=== PATIENT | male | born 1975 | race African-American/Black ===

== ENCOUNTER 2016-09-02 11:55 | Day surgery (SDC) | payer OTHER ==
[~2016-09-02 11:55] MED LIST: ACETAMINOPHEN 1,000 MG/100 ML 0 ML IV ONE; CELECOXIB 100 MG CAPSULE PO ONE; ceFAZolin 2 GM/50 ML 0 ML IV ONE
[2016-09-02] MEDS ORDERED: ACETAMINOPHEN 1,000 MG/100 ML 100 ML IV ONE (12:59)
[2016-09-02] MEDS ORDERED: ceFAZolin 2 GM/50 ML 50 ML IV ONE (13:00)
[2016-09-02] MEDS ORDERED: CELECOXIB 100 MG CAPSULE PO ONE (13:00)
[2016-09-02] MEDS ORDERED: LACTATED RINGERS 1,000 ML IV ONE ×2 (13:13→15:52)
[2016-09-02] MEDS ORDERED: PROPOFOL 200 MG/20 ML VIAL IVP ONE (13:42)
[2016-09-02] MEDS ORDERED: ACETAMINOPHEN 1,000 MG/100 ML VIAL IV ONE (13:42)
[2016-09-02] MEDS ORDERED: ONDANSETRON 4 MG/2 ML VIAL IVP ONE (13:42)
[2016-09-02] MEDS ORDERED: fentaNYL 100 MCG/2 ML VIAL IVP ONE (13:42)
[2016-09-02] MEDS ORDERED: ceFAZolin 2 GM/50 ML BAG IV ONE (13:42)
[2016-09-02] MEDS ORDERED: MIDAZOLAM 2 MG/2 ML VIAL IVP ONE (13:42)
[2016-09-02] MEDS ORDERED: MORPHINE PF 5 MG/10 ML AMP EP ONE (13:42)
[2016-09-02] MEDS ORDERED: ROPIVACAINE 0.2% PF 10 ML VIAL EPI ONE (14:15)
[2016-09-02] MEDS ORDERED: BUPIVACAINE 0.25%-EPI 1:200000 PF 30 ML VIAL SUBQ ONE (14:15)
[2016-09-02] MEDS ORDERED: MORPHINE PF 5 MG/10 ML AMP EPI ONE (14:16)
[2016-09-02] MEDS: HYDROmorphone 1 MG/ML SYRINGE ONE ×4 (15:32→16:10)
== END 2016-09-02 11:56 | disposition home or self-care (01) ==
PROC: 0SBC4ZZ Excision of Right Knee Joint, Percutaneous Endoscopic Approach (ICD-10-PCS; principal; 2016-09-02 13:20)
DX: M23.203 Derangement of unspecified medial meniscus due to old tear or injury, right knee (principal); M94.261 Chondromalacia, right knee; W50.0XXA Accidental hit or strike by another person, initial encounter; Y93.67 Activity, basketball; F17.210 Nicotine dependence, cigarettes, uncomplicated; F17.290 Nicotine dependence, other tobacco product, uncomplicated
CPT/HCPCS: 29879; 29881; A9270; J0131; J0690; J1170; J7120